=== PATIENT | male | born 1940 | race Caucasian/White ===

== ENCOUNTER 2018-08-03 06:45 | Inpatient (IN) | payer OTHER ==
[~2018-08-03] VITALS: Ht 175.3 cm; Wt 85.3 kg
[2018-08-03] MEDS ORDERED: SODIUM CHLORIDE 0.9% 1,000 ML IV ONE (08:00)
[2018-08-03 08:36] LABS: Basophils # (auto) 0 uL; Basophils % (auto) 0.4 % (0.0-2.0); Eosinophils # (auto) 0 uL; Eosinophils % (auto) 0.6 % (0.0-7.0); Hematocrit 29.9 % (41.0-53.0); Hemoglobin 9.6 g/dL (13.5-17.5); Lymphocytes # (auto) 0.6 uL; Lymphocytes % (auto) 11.2 % (10.0-50.0); Mean Corpuscular Hemoglobin 31.4 pg (28.0-32.0); Mean Corpuscular Hgb Conc. 32.3 g/dL (32.0-36.0); Mean Corpuscular Volume 97.3 fL (80.0-100.0); Monocytes # (auto) 0.3 uL; Monocytes % (auto) 6.7 % (0.0-12.0); Neutrophils # (auto) 4.1 uL; Neutrophils % (auto) 81.1 % (37.0-80.0); Platelet Count (auto) 178 10^3/uL (140-450); Red Blood Cells 3.07 10^6/uL (4.5-5.90); Red Cell Distribution Width 14.9 % (11.8-14.3)
[2018-08-03 08:48] LABS: Albumin 2.4 g/dL (3.4-5.0); BUN/Creatinine Ratio 7.2; Bilirubin, Total 0.5 mg/dL (0.2-1.0); Calcium 8.7 mg/dL (8.5-10.1); Magnesium 3.2 mg/dL (1.6-2.6); Potassium 5.4 mmol/L (3.5-5.1); Total Protein 6.6 g/dL (6.4-8.2)
[2018-08-03] MEDS ORDERED: ALBUTEROL SULF 2.5 MG/0.5ML(0.5%) NEB SOLN NEB STA (09:30)
[2018-08-03] MEDS ORDERED: CALCIUM GLUC 4.65meq/50ml D5AE 50 ML IV ONE (09:30)
[2018-08-03] MEDS ORDERED: InsuLIN REG 1unit/0.01ml Soln (100units/ml) IV ONE (09:30)
[2018-08-03] MEDS ORDERED: DEXTROSE (50%) 50ML SYRG IV ONE (09:30)
[2018-08-03] MEDS ORDERED: SODIUM BICARBONATE 8.4% INJ 50ML SYRINGE IV ONE (09:30)
[2018-08-03] MEDS ORDERED: ASPI-498 OR (12:32)
[2018-08-03] MEDS ORDERED: DOCU100T15 PO (12:32)
[2018-08-03] MEDS ORDERED: SENN1TAB14 PO (12:32)
[2018-08-03] MEDS ORDERED: ESOM40CA39 PO (12:32)
[2018-08-03] MEDS ORDERED: LEVO175T31 PO (12:32)
[2018-08-03] MEDS ORDERED: ATOR20TA50 PO (12:32)
[2018-08-03] MEDS ORDERED: TAMS0.4C36 PO (12:32)
[2018-08-03] MEDS ORDERED: CINA30TA2 PO (12:32)
[2018-08-03] MEDS ORDERED: OXY5T GT (12:32)
[2018-08-03] MEDS ORDERED: INSLISPI SC (12:32)
[2018-08-03] MEDS ORDERED: CEPH250C2 PO (12:32)
[2018-08-03] MEDS ORDERED: INSLANTI SC (12:32)
[2018-08-03] MEDS ORDERED: CARV12.544 PO (12:32)
[2018-08-03] MEDS ORDERED: LEVOTHYROXINE SODIUM 50 MCG TAB PO ONE (12:45)
[2018-08-03] MEDS ORDERED: PANTOPRAZOLE 40 MG TAB PO ONE (12:45)
[2018-08-03] MEDS ORDERED: EPOETIN ALFA 10,000 UNIT/1 ML VIAL IV ONE (12:45)
[2018-08-03] MEDS ORDERED: CARVEDILOL 12.5 MG TAB PO ONE (12:45)
[2018-08-03] MEDS ORDERED: MIDODRINE HCL 10 MG TAB PO ONE (12:45)
[2018-08-03] MEDS ORDERED: SENNA 8.6 MG TAB PO PRN (12:45)
[2018-08-03] MEDS ORDERED: SODIUM CHL 0.9% 1000 ML BAG XX ONE (12:45)
[2018-08-03] MEDS ORDERED: DEXTROSE (50%) 50ML SYRG IV PRN (12:45)
[2018-08-03] MEDS ORDERED: B-COMPLEX W/ C & FOLIC ACID(NEPHROVITE TAB) PO ONE (12:45)
[2018-08-03] MEDS ORDERED: cefTRIAXone 1GM/10ml IVPUSH 10 ML IV ONE ×2 (12:45→13:00)
[2018-08-03] MEDS ORDERED: VANCOMYCIN PER PHARMACY 0 MG IV SCH (13:00)
[2018-08-03] MEDS ORDERED: NITROGLYCERIN 0.4 MG SL TAB SL PRN (13:00)
[2018-08-03] MEDS ORDERED: ONDANSETRON HCL 4 MG/2 ML VIAL IV PRN (13:00)
[2018-08-03] MEDS ORDERED: HYDROcodone-ACET 5/325MG TAB PO PRN (13:00)
[2018-08-03] MEDS ORDERED: ACETAMINOPHEN 325 MG TAB PO PRN (13:00)
[2018-08-03] MEDS ORDERED: MORPHINE SULFATE 4 MG/ML SYR/VIAL IV PRN ×2 (13:00)
[2018-08-03] MEDS ORDERED: FAMOTIDINE 20 MG TAB PO SCH (13:30)
[2018-08-03] MEDS ORDERED: VANCOMYCIN 1GM/250ML 250 ML IV ONE (14:00)
[2018-08-03] MEDS: SODIUM CHLOR 0.9% PF (SALINE LOCK) 10ML VIAL/SYR IV SCH ×2 (14:02→22:00)
[2018-08-03] MEDS ORDERED: NOREPINEPHRINE 8 MG/250ML KIT 250 ML IV ONE (14:22)
[2018-08-03] MEDS ORDERED: NOREPINEPHRINE 8 MG/250ML KIT 250 ML IV SCH (14:30)
[2018-08-03] MEDS: ACCU-CHEK COMFORT CURVE STRIP VI SCH ×2 (19:15→22:00)
[2018-08-03] MEDS: Glucerna Carbsteady SHAKE Vanilla 8oz PO SCH (20:00)
[2018-08-03] MEDS: TAMSULOSIN HYDROCHLORIDE 0.4 MG CAP PO SCH (20:00)
[2018-08-03] MEDS: InsuLIN REG 1unit/0.01ml Soln (100units/ml) SC SCH ×2 (20:00→22:00)
[2018-08-03 22:00] VITALS: BP 121/54
[2018-08-03] MEDS: CARVEDILOL 12.5 MG TAB PO SCH (22:00)
[2018-08-03] MEDS ORDERED: ATORVASTATIN 20 MG TAB PO SCH (22:00)
[2018-08-03] MEDS: ASCORBIC ACID 500 MG TAB PO SCH (22:39)
[2018-08-03] MEDS: SENNA 8.6 MG TAB PO SCH (22:40)
[2018-08-04] MEDS ORDERED: MULTCAP45 PO (01:46)
[2018-08-04] MEDS ORDERED: CINA30TA2 PO (01:46)
[2018-08-04 05:31] VITALS: BP 138/57
[2018-08-04] MEDS: SODIUM CHLOR 0.9% PF (SALINE LOCK) 10ML VIAL/SYR IV SCH ×2 (06:22→14:00)
[2018-08-04] MEDS: InsuLIN REG 1unit/0.01ml Soln (100units/ml) SC SCH ×3 (06:30→17:22)
[2018-08-04 06:34] LABS: Basophils # (auto) 0 uL; Eosinophils # (auto) 0.1 uL; Hemoglobin 8.3 g/dL (13.5-17.5); Lymphocytes # (auto) 0.5 uL; Monocytes # (auto) 0.3 uL; White Blood Cell 3.7 10^3/uL (4.4-10.8)
[2018-08-04 06:46] LABS: Basophils % (auto) 0.9 % (0.0-2.0); Eosinophils % (auto) 3.8 % (0.0-7.0); Hematocrit 25.1 % (41.0-53.0); Lymphocytes % (auto) 14.5 % (10.0-50.0); Mean Corpuscular Hemoglobin 32.1 pg (28.0-32.0); Mean Corpuscular Hgb Conc. 33.2 g/dL (32.0-36.0); Mean Corpuscular Volume 96.5 fL (80.0-100.0); Monocytes % (auto) 8.6 % (0.0-12.0); Neutrophils # (auto) 2.6 uL; Neutrophils % (auto) 72.2 % (37.0-80.0); Nucleated Red Blood Cells % 0.2 %; Platelet Count (auto) 166 10^3/uL (140-450); Red Cell Distribution Width 14.9 % (11.8-14.3)
[2018-08-04] MEDS: ACCU-CHEK COMFORT CURVE STRIP VI SCH ×3 (06:49→17:20)
[2018-08-04] MEDS ORDERED: LEVOTHYROXINE SODIUM 50 MCG TAB PO SCH (07:00)
[2018-08-04] MEDS ORDERED: INSULIN LANTUS (GLARGINE) 1 /0.01ml (100units/ml) SC SCH (07:00)
[2018-08-04 07:02] LABS: Alanine Aminotransferase < 6 U/L (16-61); Albumin 2.1 g/dL (3.4-5.0); Alkaline Phosphatase 120 U/L (45-117); Anion Gap 8 (5-15); Aspartate Aminotransferase 14 U/L (15-37); BUN/Creatinine Ratio 6.6; Bilirubin, Total 0.4 mg/dL (0.2-1.0); Blood Urea Nitrogen 40 mg/dL (7-18); Carbon Dioxide 28 mmol/L (21-32); Chloride 110 mmol/L (98-107); Cholesterol 97 mg/dL (< 200); GFR African American 12 mL/min; GFR Non-African American 10 mL/min; Glucose 211 mg/dL (74-106); HDL Cholesterol 31 mg/dL (40-59); LDL Cholesterol 64 mg/dL (< 100); Phosphorus 6.1 mg/dL (2.5-4.90); Potassium 4.6 mmol/L (3.5-5.1); Sodium 146 mmol/L (136-145); Total Protein 5.9 g/dL (6.4-8.2); Triglycerides 92 mg/dL (< 150)
[2018-08-04 09:00] VITALS: BP_SYST 130; BP_SYST 83; BP_DIAS 30; BP_DIAS 61
[2018-08-04] MEDS ORDERED: cefTRIAXone 1GM/10ml IVPUSH 10 ML IV SCH ×2 (09:00)
[2018-08-04] MEDS: SENNA 8.6 MG TAB PO SCH (09:44)
[2018-08-04] MEDS: CARVEDILOL 12.5 MG TAB PO SCH (09:45)
[2018-08-04] MEDS: ASCORBIC ACID 500 MG TAB PO SCH (09:46)
[2018-08-04] MEDS: Glucerna Carbsteady SHAKE Vanilla 8oz PO SCH ×3 (09:46→19:10)
[2018-08-04] MEDS ORDERED: ZINC SULFATE 220mg CAP or TAB PO SCH (10:00)
[2018-08-04] MEDS ORDERED: ASPirin-EC 81 mg tab PO SCH (10:00)
[2018-08-04] MEDS ORDERED: CINACALCET HYDROCHLORIDE 30 MG TAB PO SCH (10:00)
[2018-08-04] MEDS ORDERED: ENOXAPARIN SOD 30 MG/0.3 ML SYRINGE SC SCH (10:00)
[2018-08-04] MEDS ORDERED: B-COMPLEX W/ C & FOLIC ACID(NEPHROVITE TAB) PO SCH (10:00)
[2018-08-04] MEDS ORDERED: PANTOPRAZOLE 40 MG TAB PO SCH (10:00)
[2018-08-04] MEDS ORDERED: MULTIPLE VITAMIN TAB PO SCH (10:00)
[2018-08-04] MEDS ORDERED: SODIUM CHL 0.9% 1000 ML BAG XX ONE (12:15)
[2018-08-04] MEDS: SEVELAMER 800 MG TAB PO SCH ×2 (12:51→19:10)
[2018-08-04 13:00] VITALS: BP 141/71
[2018-08-04 17:00] VITALS: BP 128/55
[2018-08-04] MEDS ORDERED: VANCOMYCIN 500 MG in D5W 5% 100 ML IV ONE (18:00)
[2018-08-04] MEDS: TAMSULOSIN HYDROCHLORIDE 0.4 MG CAP PO SCH (19:10)
[2018-08-04 19:58] LABS: Urine Bacteria NONE SEEN /hpf (None Seen); Urine Blood 2+ /uL (Negative); Urine Specific Gravity 1.018 (1.001-1.035); Urine WBC 4331 /hpf (0 - 3); Urine WBC Clumps PRESENT /hpf (None Seen)
[2018-08-04 20:00] VITALS: BP 115/43
== END 2018-08-04 21:30 | disposition short-term general hospital (02) | DRG 91 ==
LOC: EDBD 06:45 → ER 06:45 → TELE 06:46 → TELE-WESTW 21:20
PROVIDERS: ADMIT Internal Medicine; ATTEND Internal Medicine
PROC: 5A1D70Z Performance of Urinary Filtration, Intermittent, Less than 6 Hours Per Day (ICD-10-PCS; principal; 2018-08-03)
DX: G92 Toxic encephalopathy (principal); N18.6 End stage renal disease; E44.0 Moderate protein-calorie malnutrition; I13.11 Hypertensive heart and chronic kidney disease without heart failure, with stage 5 chronic kidney disease, or end stage renal disease; J98.11 Atelectasis; Z99.2 Dependence on renal dialysis; E11.21 Type 2 diabetes mellitus with diabetic nephropathy; E11.22 Type 2 diabetes mellitus with diabetic chronic kidney disease; E87.5 Hyperkalemia; E83.41 Hypermagnesemia; Z88.8 Allergy status to other drugs, medicaments and biological substances; M54.9 Dorsalgia, unspecified; Z68.27 Body mass index [BMI] 27.0-27.9, adult; E03.9 Hypothyroidism, unspecified; E78.5 Hyperlipidemia, unspecified; G89.4 Chronic pain syndrome; M12.9 Arthropathy, unspecified; Z82.5 Family history of asthma and other chronic lower respiratory diseases; Z83.3 Family history of diabetes mellitus; Z96.649 Presence of unspecified artificial hip joint; T50.905A Adverse effect of unspecified drugs, medicaments and biological substances, initial encounter; Y92.89 Other specified places as the place of occurrence of the external cause; M62.549 Muscle wasting and atrophy, not elsewhere classified, unspecified hand; Z79.82 Long term (current) use of aspirin; Z79.4 Long term (current) use of insulin; Z79.899 Other long term (current) drug therapy
CPT/HCPCS: 36415; 70450; 71045; 80053; 80061; 80202; 81001; 82607; 82962; 83036; 83605; 83735; 84100; 84132; 84443; 84484; 85025; 87040; 87081; 87086; 87088; 87186; 90935; 93306; 93886; 94644; 96365; 96366; 96375; J0610; J0696; J0885; J1642; J1815; J7060